=== PATIENT | female | born 1980 | race Caucasian/White ===

== ENCOUNTER 2021-06-14 11:53 | Emergency (ER) | payer OTHER ==
[2021-06-14 13:56] LABS: HEMOGLOBIN 13.6 gm/dl (12.3-15.3); RED BLOOD COUNT 4.05 M/UL (4.00-5.10); WHITE BLOOD COUNT 5.5 K/UL (4.5-11.0)
[2021-06-14 14:08] LABS: BUN/CREATININE RATIO 11 (0-10)
[2021-06-14] MEDS ORDERED: VISTARIL25 MG PO (15:54)
[2021-06-14] MEDS ORDERED: KENALOG 0.5% CR15 GM EXT (15:54)
[2021-06-14] MEDS ORDERED: DOXYCYCLINE HY100 MG PO (15:54)
== END 2021-06-14 16:20 | disposition home or self-care (01) ==
LOC: ER1 11:53
PROVIDERS: Preventive Medicine Occupational Medicine
DX: L30.9 Dermatitis, unspecified (principal); Z20.822 Contact with and (suspected) exposure to COVID-19
CPT/HCPCS: 71045; 80053; 81001; 82550; 82553; 83690; 83874; 83880; 84484; 85025; 85379; 85652; 86140; 87040; 87086; 93005; 93971; 99284; U0002